=== PATIENT | female | born 1955 ===

== ENCOUNTER 2017-04-17 15:54 | Emergency (ER) | payer SELFPAY ==
[2017-04-17 16:28] VITALS: O2SAT 99
--- NOTE | 2017-04-17 18:37 | C.PDOC ---
History Of Present Illness 61 year old female presents to the ER with a complaint of a prolapsing white fleshy ball from the vagina that worsens with standing and valsalva for the past 2 weeks. Patient has a Hx of vaginal delivery, not sexually active since last year. Denies abdominal pain. Time Seen by Provider: 04/17/17 16:31 Chief Complaint (Nursing): Female Genitourinary History Per: Patient History/Exam Limitations: no limitations Onset/Duration Of Symptoms: Days Current Symptoms Are (Timing): Still Present Quality Of Discomfort: Unable To Describe Alleviating Factors: None Recent travel outside of the [place]: No Past Medical History Reviewed: Historical Data, Nursing Documentation, Vital Signs Vital Signs: Last Vital Signs Temp 98.2 F 04/17/17 18:43 Pulse 71 04/17/17 18:43 Resp 16 04/17/17 18:43 BP 115/70 04/17/17 18:43 Pulse Ox 99 04/17/17 18:43 Family History: States: Unknown Family Hx - Social History Hx Alcohol Use: No Hx Substance Use: No Review Of Systems Constitutional: Negative for: Fever, Chills Gastrointestinal: Negative for: Abdominal Pain Genitourinary: Positive for: Other (Prolapsing white fleshy ball). Negative for : Dysuria, Hematuria, Vaginal Discharge, Vaginal Bleeding Physical Exam - Physical Exam Appears: Non-toxic, No Acute Distress Skin: Normal Color, Warm, Dry Head: Atraumatic, Normacephalic Eye(s): bilateral: Normal Inspection Oral Mucosa: Moist Chest: Symmetrical, No Tenderness Cardiovascular: Rhythm Regular Respiratory: Normal Breath Sounds, No Rales, No Rhonchi, No Wheezing Gastrointestinal/Abdominal: Soft, No Tenderness Pelvic: No Vaginal Bleeding, No Vaginal Discharge, Other (Normal cervix, prolasping bladder worsened with valsalva) Neurological/Psych: Oriented x3, Normal Speech ED Course And Treatment O2 Sat by Pulse Oximetry: 99 (room air) Pulse Ox Interpretation: Normal Medical Decision Making Medical Decision Making: probable prolapsed bladder into vagina benign now unable to d/w Urology as referred by [facility] Disposition Doctor Will See Patient In The: Office Counseled Patient/Family Regarding: Studies Performed, Diagnosis - Disposition Referrals: [facility] [Outside] [facility] [Outside] Pablo Dukes MD [Staff Provider] - Paulina Dukes MD [Staff Provider] - Bert Hogan MD [Staff Provider] - Disposition: HOME/ ROUTINE Disposition Time: 18:36 Condition: GOOD Additional Instructions: Llama manana al Urologos para preguntar octavio proceder con rios prolapso de la vejiga. Puede seguir en la [facility] (gratis) tambien Instructions: Cystocele and Rectocele Forms: [employer] ([place]) Print Language: GREENLANDIC - Clinical Impression Clinical Impression: Prolapsed bladder - Scribe Statement The provider has reviewed the documentation as recorded by the Scribe Austin Wyatt All medical record entries made by the Scribe were at my direction and personally dictated by me. I have reviewed the chart and agree that the record accurately reflects my personal performance of the history, physical exam, medical decision making, and the department course for this patient. I have also personally directed, reviewed, and agree with the discharge instructions and disposition.
[2017-04-17 18:45] VITALS: BP 115/70; PULSE 71; RESP 16; TEMP 98.2
== END 2017-04-17 18:43 | disposition home or self-care (01) ==
LOC: C.ER 15:54
DX: N81.10 Cystocele, unspecified (principal)